=== PATIENT | male | born 1990 | race Two or more races ===

== ENCOUNTER 2018-01-11 08:18 | Emergency (ER) | payer SELFPAY ==
[~2018-01-11] VITALS: Ht 165.1 cm; Wt 63.5 kg
[2018-01-11 08:24] VITALS: BP 120/74
== END 2018-01-11 08:42 | disposition home or self-care (01) ==
LOC: ER 08:18
DX: H66.91 Otitis media, unspecified, right ear (principal)
CPT/HCPCS: 99283; A4606; Z7610